=== PATIENT | female | born 1935 | race Caucasian/White ===

== ENCOUNTER 2018-12-06 07:47 | Day surgery (SDC) | payer MEDICARE ==
[2018-12-06] MEDS ORDERED: Ketamine HCl 50 MG/ML IJ ONE (07:48)
[2018-12-06] MEDS ORDERED: Depo-Medrol 40 MG/ML IM ONE (07:48)
[2018-12-06] MEDS ORDERED: Sodium Chloride 0.9(Preservative Free) 10 ML IJ ONE (07:48)
[2018-12-06] MEDS ORDERED: DIPRIVAN 200 MG/20 ML IV ONE (07:48)
[2018-12-06] MEDS ORDERED: Xylocaine 1% Vial 30 ML PF IJ ONE (07:48)
--- NOTE | 2018-12-06 10:24 | XRAY ---
Indication: L4-S1 TAMIA. Intraoperative fluoroscopy was provided for 28 seconds. 3 digital spot images submitted for interpretation demonstrates posterior needle tips in the expected course of the left L4 and L5 nerve roots. Small amount of contrast injected for needle tip placement. Correlate with intraoperative findings/report.
--- NOTE | 2018-12-06 10:28 | XRAY ---
28 seconds fluoroscopy time in surgery for left L4-S1 TAMIA.
[2018-12-06] MEDS ORDERED: Lactated Ringers 1,000 ML IV ONE (18:00)
== END 2018-12-06 09:36 | disposition home or self-care (01) ==
LOC: SDC-PAIN 07:47
PROVIDERS: ATTEND Psychiatry & Neurology Pain Medicine
DX: M54.16 Radiculopathy, lumbar region (principal); E11.9 Type 2 diabetes mellitus without complications; M19.90 Unspecified osteoarthritis, unspecified site; Z79.899 Other long term (current) drug therapy
CPT/HCPCS: 64483; 64484; 72020; 77003; 82962; 99100; J1030; J2001; J2704; Q9966

== ENCOUNTER 2019-04-18 08:58 | Day surgery (SDC) | payer MEDICARE ==
[2019-04-18] MEDS ORDERED: Sodium Chloride 0.9(Preservative Free) 10 ML IJ ONE (08:59)
[2019-04-18] MEDS ORDERED: Depo-Medrol 40 MG/ML IM ONE (08:59)
[2019-04-18] MEDS ORDERED: Ketamine HCl 50 MG/ML ONE (10:16)
[2019-04-18] MEDS ORDERED: DIPRIVAN 200 MG/20 ML IV ONE (10:16)
--- NOTE | 2019-04-18 11:16 | XRAY ---
Indication: Left L4-S1 TAMIA. Intraoperative fluoroscopy was provided for 21 seconds. 2 digital spot images submitted for interpretation demonstrates posterior needle tips projecting over the expected course of the left L4 and L5 nerve roots. Small amount of contrast injected for needle tip placement. Correlate with intraoperative findings/report.
--- NOTE | 2019-04-18 11:23 | XRAY ---
21 seconds fluoroscopy time in surgery for left L4-S1 TAMIA.
[2019-04-18] MEDS ORDERED: Lactated Ringers 1,000 ML IV ONE (15:24)
== END 2019-04-18 10:45 | disposition home or self-care (01) ==
LOC: SDC-PAIN 08:58
PROVIDERS: ATTEND Psychiatry & Neurology Pain Medicine
DX: M54.16 Radiculopathy, lumbar region (principal); E11.9 Type 2 diabetes mellitus without complications; F32.9 Major depressive disorder, single episode, unspecified; Z79.899 Other long term (current) drug therapy
CPT/HCPCS: 64483; 64484; 72020; 77003; 82962; 99100; J1030; J2704; Q9966

== ENCOUNTER 2019-06-06 08:53 | Day surgery (SDC) | payer MEDICARE ==
[2019-06-06] MEDS ORDERED: Depo-Medrol 40 MG/ML IM ONE (08:54)
[2019-06-06] MEDS ORDERED: Xylocaine-Mpf 2% 5 Ml Vial IJ ONE (08:54)
[2019-06-06] MEDS ORDERED: Ketamine HCl 50 MG/ML ONE (10:57)
[2019-06-06] MEDS ORDERED: DIPRIVAN 200 MG/20 ML IV ONE (10:57)
--- NOTE | 2019-06-06 13:32 | XRAY ---
Indication: Bilateral L4-S1 MBB. Intraoperative fluoroscopy was provided for 10 seconds. Single digital spot image submitted for interpretation demonstrates posterior needle tips projecting over the expected course of the left and right L4-S1 nerve roots. Correlate with intraoperative findings/report.
--- NOTE | 2019-06-06 14:37 | XRAY ---
10 seconds of fluoroscopy was used in surgery for a bilateral L4-L5, L5-S1 MBB.
[2019-06-06] MEDS ORDERED: Lactated Ringers 1,000 ML IV ONE (14:47)
== END 2019-06-06 11:25 ==
LOC: SDC-PAIN 08:53
PROVIDERS: ATTEND Psychiatry & Neurology Pain Medicine
DX: M47.816 Spondylosis without myelopathy or radiculopathy, lumbar region (principal); E11.9 Type 2 diabetes mellitus without complications; Z79.899 Other long term (current) drug therapy
CPT/HCPCS: 64493; 64494; 72020; 77002; 82962; J1030; J2704

== ENCOUNTER 2019-06-27 10:17 | Day surgery (SDC) | payer MEDICARE ==
[2019-06-27] MEDS ORDERED: Depo-Medrol 40 MG/ML IM ONE (10:18)
[2019-06-27] MEDS ORDERED: Marcaine 0.5% SDV 10 ML IJ ONE (10:18)
[2019-06-27] MEDS ORDERED: Ketamine HCl 50 MG/ML ONE (12:06)
[2019-06-27] MEDS ORDERED: DIPRIVAN 200 MG/20 ML IV ONE (12:06)
--- NOTE | 2019-06-27 13:09 | XRAY ---
Indication: Bilateral L4-S1 MBB. Intraoperative fluoroscopy was provided for 7 seconds. Single digital spot image submitted for interpretation demonstrates posterior needle tips projecting over the expected course of the left and right L4-S1 nerve roots. Correlate with intraoperative findings/report.
--- NOTE | 2019-06-27 13:21 | XRAY ---
7 seconds fluoroscopy time in surgery for bilateral L4-S1 MBB.
[2019-06-27] MEDS ORDERED: Lactated Ringers 1,000 ML IV ONE (14:34)
== END 2019-06-27 12:33 | disposition home or self-care (01) ==
LOC: SDC-PAIN 10:17
PROVIDERS: ATTEND Psychiatry & Neurology Pain Medicine
DX: M47.816 Spondylosis without myelopathy or radiculopathy, lumbar region (principal); E11.9 Type 2 diabetes mellitus without complications; Z79.899 Other long term (current) drug therapy
CPT/HCPCS: 64493; 64495; 72020; 77002; 82962; J1030; J2704

== ENCOUNTER 2019-08-08 08:07 | Day surgery (SDC) | payer MEDICARE ==
[2019-08-08] MEDS ORDERED: Marcaine 0.5% SDV 10 ML IJ ONE (08:08)
[2019-08-08] MEDS ORDERED: Xylocaine 1% Vial 30 ML PF IJ ONE (08:08)
[2019-08-08] MEDS ORDERED: Depo-Medrol 40 MG/ML IM ONE (08:08)
[2019-08-08] MEDS ORDERED: DIPRIVAN 200 MG/20 ML IV ONE (08:32)
[2019-08-08] MEDS ORDERED: Ketamine HCl 50 MG/ML ONE (08:37)
--- NOTE | 2019-08-08 10:58 | XRAY ---
Indication: Left L4-S1 RFA. Intraoperative fluoroscopy was provided for 26 seconds. 2 digital spot images submitted for interpretation demonstrates posterior needle tips projecting over the expected course of the left L4-S1 nerve roots. Correlate with intraoperative findings/report.
--- NOTE | 2019-08-08 11:00 | XRAY ---
26 seconds fluoroscopy time in surgery for left L4-S1 RFA.
[2019-08-08] MEDS ORDERED: Lactated Ringers 1,000 ML IV ONE (14:33)
== END 2019-08-08 09:45 | disposition home or self-care (01) ==
LOC: SDC-PAIN 08:07 → EDSTATUS 14:29
PROVIDERS: ATTEND Psychiatry & Neurology Pain Medicine
DX: M47.816 Spondylosis without myelopathy or radiculopathy, lumbar region (principal); E11.9 Type 2 diabetes mellitus without complications; Z79.899 Other long term (current) drug therapy
CPT/HCPCS: 64635; 64636; 72100; 77002; 82962; 99100; J1030; J2001; J2704

== ENCOUNTER 2019-08-22 12:19 | Day surgery (SDC) | payer MEDICARE ==
[2019-08-22] MEDS ORDERED: Marcaine 0.5% SDV 10 ML IJ ONE (12:20)
[2019-08-22] MEDS ORDERED: Xylocaine 1% Vial 30 ML PF IJ ONE (12:20)
[2019-08-22] MEDS ORDERED: Depo-Medrol 40 MG/ML IM ONE (12:20)
[2019-08-22] MEDS ORDERED: Ketamine HCl 50 MG/ML ONE (13:21)
[2019-08-22] MEDS ORDERED: DIPRIVAN 200 MG/20 ML IV ONE (13:21)
--- NOTE | 2019-08-22 15:39 | XRAY ---
Indication: Right L4-S1 RFA. Intraoperative fluoroscopy was provided 25 seconds. 3 digital spot images submitted for interpretation demonstrates posterior needle tips projecting over the expected course of the right L4-S1 nerve roots. Correlate with intraoperative findings/report.
[2019-08-22] MEDS ORDERED: Lactated Ringers 1,000 ML IV ONE (16:02)
--- NOTE | 2019-08-23 09:07 | XRAY ---
25 seconds fluoroscopy time in surgery for right L4-S1 RFA.
== END 2019-08-22 13:55 | disposition home or self-care (01) ==
LOC: SDC-PAIN 12:19
PROVIDERS: ATTEND Psychiatry & Neurology Pain Medicine
DX: M47.816 Spondylosis without myelopathy or radiculopathy, lumbar region (principal); E11.9 Type 2 diabetes mellitus without complications; M19.90 Unspecified osteoarthritis, unspecified site; Z79.899 Other long term (current) drug therapy
CPT/HCPCS: 64635; 64636; 72100; 77002; 82962; 99100; J1030; J2001; J2704

== ENCOUNTER 2021-03-18 10:25 | Day surgery (SDC) | payer MEDICARE ==
[2021-03-18] MEDS ORDERED: BUPIVACAINE 0.5% VIAL IJ ONE (10:26)
[2021-03-18] MEDS ORDERED: Depo-Medrol 40 MG/ML IM ONE (10:26)
[2021-03-18] MEDS ORDERED: Sodium Chloride 0.9(Preservative Free) 10 ML IJ ONE (10:26)
[2021-03-18] MEDS ORDERED: DIPRIVAN 200 MG/20 ML IV ONE (12:52)
--- NOTE | 2021-03-18 15:57 | XRAY ---
37 seconds of fluoroscopy was used in surgery for a left L3-L4, L4-L5 transforaminal TAMIA.
--- NOTE | 2021-03-18 16:07 | XRAY ---
7 seconds of fluoroscopy was used in surgery for a left SI joint injection.
[2021-03-18] MEDS ORDERED: Lactated Ringers 1,000 ML IV ONE (17:31)
== END 2021-03-18 13:24 | disposition home or self-care (01) ==
LOC: SDC-PAIN 10:25
PROVIDERS: ATTEND Psychiatry & Neurology Pain Medicine
DX: M54.16 Radiculopathy, lumbar region (principal); M46.1 Sacroiliitis, not elsewhere classified; E11.9 Type 2 diabetes mellitus without complications; Z79.899 Other long term (current) drug therapy
CPT/HCPCS: 27096; 64483; 64484; 72020; 72100; 77002; 77003; 82947; G0260; J1030; J2704; Q9966

== ENCOUNTER 2022-09-15 09:17 | Day surgery (SDC) | payer MEDICARE ==
[2022-09-15] MEDS ORDERED: Depo-Medrol 40 MG/ML IM ONE (09:18)
[2022-09-15] MEDS ORDERED: LIDOCAINE HCL 2% 100 MG/5 ML IJ ONE (09:18)
[2022-09-15] MEDS ORDERED: Lactated Ringers 1,000 ML IV ONE (11:37)
[2022-09-15] MEDS ORDERED: DIPRIVAN 200 MG/20 ML IV ONE (11:38)
--- NOTE | 2022-09-15 12:23 | XRAY ---
Indication: Bilateral L4-S1 MBB. Intraoperative fluoroscopy provided for 14 seconds. Single digital spot image submitted for interpretation demonstrates posterior needle tips projecting over the expected left and right L4-S1 nerve roots. Correlate with intraoperative findings/report.
--- NOTE | 2022-09-15 12:25 | XRAY ---
14 seconds of fluoroscopy was used in surgery for a bilateral L4-S1 MBB.
== END 2022-09-15 12:00 | disposition home or self-care (01) ==
LOC: SDC-PAIN 09:17
PROVIDERS: ATTEND Psychiatry & Neurology Pain Medicine
DX: M47.816 Spondylosis without myelopathy or radiculopathy, lumbar region (principal); E11.9 Type 2 diabetes mellitus without complications; Z79.899 Other long term (current) drug therapy
CPT/HCPCS: 64493; 64494; 72020; 77002; 82947; J1030; J2704

== ENCOUNTER 2022-09-29 06:38 | Day surgery (SDC) | payer MEDICARE ==
[2022-09-29] MEDS ORDERED: Depo-Medrol 40 MG/ML IM ONE (06:39)
[2022-09-29] MEDS ORDERED: LIDOCAINE HCL 1% 50 MG/5 ML VL PF IJ ONE (06:39)
[2022-09-29] MEDS ORDERED: BUPIVACAINE 0.5% VIAL IJ ONE (06:39)
[2022-09-29] MEDS ORDERED: DIPRIVAN 200 MG/20 ML IV ONE (08:07)
--- NOTE | 2022-09-29 09:29 | XRAY ---
Indication: Left L4-S1 RFA. Intraoperative fluoroscopy provided for 20 seconds. 5 digital spot images submitted for interpretation demonstrates posterior needle tips projecting over the expected left L4-S1 nerve roots. Correlate with intraoperative findings/report.
--- NOTE | 2022-09-29 10:35 | XRAY ---
20 seconds of fluoroscopy was used in surgery for a left L4-S1 RFA.
[2022-09-29] MEDS ORDERED: Lactated Ringers 1,000 ML IV ONE (13:23)
== END 2022-09-29 08:45 | disposition home or self-care (01) ==
LOC: SDC-PAIN 06:38
PROVIDERS: ATTEND Psychiatry & Neurology Pain Medicine
DX: M47.816 Spondylosis without myelopathy or radiculopathy, lumbar region (principal); E11.9 Type 2 diabetes mellitus without complications; Z79.899 Other long term (current) drug therapy
CPT/HCPCS: 64635; 64636; 72100; 77002; 82947; 99100; J1030; J2001; J2704

== ENCOUNTER 2022-10-06 07:01 | Day surgery (SDC) | payer MEDICARE ==
[2022-10-06] MEDS ORDERED: BUPIVACAINE 0.5% VIAL IJ ONE (07:02)
[2022-10-06] MEDS ORDERED: Depo-Medrol 40 MG/ML IM ONE (07:02)
[2022-10-06] MEDS ORDERED: LIDOCAINE HCL 1% 50 MG/5 ML VL PF IJ ONE (07:02)
[2022-10-06] MEDS ORDERED: DIPRIVAN 200 MG/20 ML IV ONE (08:05)
--- NOTE | 2022-10-06 10:06 | XRAY ---
19 seconds of fluoroscopy was used in surgery for a right L4-S1 RFA.
--- NOTE | 2022-10-06 10:07 | XRAY ---
Indication: Right L4-S1 RFA. Intraoperative fluoroscopy provided for 19 seconds. 4 digital spot image submitted for interpretation demonstrates posterior needle tips projecting over the expected right L4-S1 nerve roots. Correlate with intraoperative findings/report.
[2022-10-06] MEDS ORDERED: Lactated Ringers 1,000 ML IV ONE (13:57)
== END 2022-10-06 08:45 | disposition home or self-care (01) ==
LOC: SDC-PAIN 07:01
PROVIDERS: ATTEND Psychiatry & Neurology Pain Medicine
DX: M47.816 Spondylosis without myelopathy or radiculopathy, lumbar region (principal); E11.9 Type 2 diabetes mellitus without complications; Z79.899 Other long term (current) drug therapy
CPT/HCPCS: 64635; 64636; 72100; 77002; 82947; 99100; J1030; J2001; J2704

== ENCOUNTER 2023-09-28 09:39 | Day surgery (SDC) | payer MEDICARE ==
[2023-09-28] MEDS ORDERED: BUPIVACAINE 0.5% VIAL IJ ONE (09:40)
[2023-09-28] MEDS ORDERED: Depo-Medrol 40 MG/ML IM ONE (09:40)
[2023-09-28] MEDS ORDERED: DIPRIVAN 200 MG/20 ML IV ONE (12:00)
[2023-09-28] MEDS ORDERED: Lactated Ringers 1,000 ML IV ONE (14:22)
--- NOTE | 2023-09-28 14:43 | XRAY ---
Indication: Bilateral SI joint injection. Intraoperative fluoroscopy provided for 35 seconds. 8 digital spot image submitted for interpretation demonstrates posterior needle tip projecting over the left and right SI joint. Small amount of contrast injected for both needle tip placement. Correlate with intraoperative findings/report.
--- NOTE | 2023-09-28 15:08 | XRAY ---
35 seconds of fluoroscopy was used in surgery for a bilateral sacroiliac joint injection.
== END 2023-09-28 12:45 | disposition home or self-care (01) ==
LOC: SDC-PAIN 09:39
PROVIDERS: ATTEND Psychiatry & Neurology Pain Medicine
DX: M46.1 Sacroiliitis, not elsewhere classified (principal); E11.9 Type 2 diabetes mellitus without complications
CPT/HCPCS: 01992; 27096; 72202; 77002; 82947; 99100; G0260; J1030; J2704; Q9966

== ENCOUNTER 2024-07-04 07:59 | Day surgery (SDC) | payer MEDICARE ==
[2024-07-04] MEDS ORDERED: LIDOCAINE HCL 1% AMPUL 5 ML IJ ONE (08:00)
[2024-07-04] MEDS ORDERED: Depo-Medrol 40 MG/ML IM ONE (08:00)
[2024-07-04] MEDS ORDERED: BUPIVACAINE 0.5% VIAL IJ ONE (08:00)
[2024-07-04] MEDS ORDERED: DIPRIVAN 200 MG/20 ML IV ONE (09:26)
--- NOTE | 2024-07-04 13:28 | XRAY ---
Indication: Right L4-S1 RFA. Intraoperative fluoroscopy provided for 32 seconds. 5 digital spot image submitted for interpretation demonstrates posterior needle tips projecting over expect right L4-S1 nerve roots. Correlate with intraoperative findings/report.
--- NOTE | 2024-07-04 14:25 | XRAY ---
32 seconds of fluoroscopy was used in surgery for a right L4-S1 RFA.
== END 2024-07-04 10:05 | disposition home or self-care (01) ==
LOC: SDC-PAIN 07:59
PROVIDERS: ATTEND Psychiatry & Neurology Pain Medicine
DX: M47.816 Spondylosis without myelopathy or radiculopathy, lumbar region (principal); E11.9 Type 2 diabetes mellitus without complications
CPT/HCPCS: 64635; 64636; 72100; 77002; 82947; 99100; J2704

== ENCOUNTER 2024-07-05 07:45 | Day surgery (SDC) | payer MEDICARE ==
[2024-07-05] MEDS ORDERED: BUPIVACAINE 0.5% VIAL IJ ONE (07:46)
[2024-07-05] MEDS ORDERED: LIDOCAINE HCL 1% AMPUL 5 ML IJ ONE (07:46)
[2024-07-05] MEDS ORDERED: Depo-Medrol 40 MG/ML IM ONE (07:46)
[2024-07-05] MEDS ORDERED: DIPRIVAN 200 MG/20 ML IV ONE (09:31)
--- NOTE | 2024-07-05 11:46 | XRAY ---
Indication: Left L4-S1 RFA. Intraoperative fluoroscopy provided for 33 seconds. 4 digital spot image submitted for interpretation demonstrates posterior needle tips projecting over the expected left L4-S1 nerve roots. Correlate with intraoperative findings/report.
--- NOTE | 2024-07-05 11:54 | XRAY ---
33 seconds of fluoroscopy was used in surgery for a left L4-S1 RFA.
== END 2024-07-05 10:08 | disposition home or self-care (01) ==
LOC: SDC-PAIN 07:45
PROVIDERS: ATTEND Psychiatry & Neurology Pain Medicine
DX: M47.817 Spondylosis without myelopathy or radiculopathy, lumbosacral region (principal); E11.9 Type 2 diabetes mellitus without complications
CPT/HCPCS: 64635; 64636; 72100; 77002; 82947; 99100; J2704

== ENCOUNTER 2025-06-05 09:55 | Day surgery (SDC) | payer MEDICARE ==
[2025-06-05] MEDS ORDERED: LIDOCAINE HCL 1% 50 MG/5 ML VL IJ ONE (09:56)
[2025-06-05] MEDS ORDERED: methylPREDNISolone acetate IM ONE (09:56)
[2025-06-05] MEDS ORDERED: BUPIVACAINE 0.5% VIAL IJ ONE (09:56)
[2025-06-05] MEDS ORDERED: propofoL IV ONE (12:04)
[2025-06-05] MEDS ORDERED: Xylocaine-Mpf 2% 5 Ml Vial ONE (12:07)
--- NOTE | 2025-06-05 13:03 | XRAY ---
Indication: Right L4-S1 RFA. Intraoperative fluoroscopy provided for 18 seconds. 3 digital spot image submitted for interpretation demonstrates posterior needle tips projecting over expected right L4-S1 nerve roots. Correlate with intraoperative findings/report.
--- NOTE | 2025-06-05 13:07 | XRAY ---
18 seconds of fluoroscopy were used in surgery for a right L4-S1 RFA.
[2025-06-05] MEDS ORDERED: Lactated Ringers 1,000 ML IV ONE (15:17)
== END 2025-06-05 12:40 | disposition home or self-care (01) ==
LOC: SDC-PAIN 09:55
PROVIDERS: ATTEND Psychiatry & Neurology Pain Medicine
DX: M47.817 Spondylosis without myelopathy or radiculopathy, lumbosacral region (principal); E11.9 Type 2 diabetes mellitus without complications